=== PATIENT | female | born 1980 | race Caucasian/White ===

== ENCOUNTER 2017-05-10 08:03 | Emergency (ER) | payer OTHER ==
[2017-05-10] MEDS ORDERED: ONDANSETRON HCL INJ/PF 4 MG/2 ML SDV IV ONE (08:33)
[2017-05-10] MEDS ORDERED: MORPHINE SULFATE 10 MG/ML INJ IV PRN (08:33)
--- NOTE | 2017-05-10 08:34 | ER Document Report ---
ED General - General Chief Complaint: Possible Kidney Stone Stated Complaint: ABDOMINAL PAIN Time Seen by Provider: 05/10/17 08:18 Notes: 37 year female presents with 3 days of right lower back pain, worsening, radiating around to the front, worse with movement now associated with nausea. She has had increased urinary frequency and darker urine than usual. Denies fever chills. She has a history of a self diagnosed kidney stone and a bulging disc in her back and is not sure which one this feels like. Even toward by EMS which she states did not work. Past Medical History - Social History Smoking Status: Never Smoker Chew tobacco use (# tins/day): No Frequency of alcohol use: None Drug Abuse: None Family History: None GI Medical History: Reports: Hx Gastroesophageal Reflux Disease Review of Systems - Review of Systems Notes: REVIEW OF SYSTEMS GEN: Denies fever, chills, weight loss ENT: Denies sore throat, nasal discharge, ear pain EYES: Denies blurry vision, eye pain, discharge CV: Denies chest pain, palpitations, edema RESP: Denies cough, shortness of breath, wheezing GI: Denies abdominal pain, nausea, vomiting, diarrhea MSK: Back pain SKIN: Denies rash, skin lesions LYMPH: Denies swollen glands/lymph nodes NEURO: Denies headache, focal weakness or numbness, dizziness PSYCH: Denies depression, suicidal or homicidal ideation PHYSICAL EXAMINATION General: The obese. No acute distress, well-nourished Head: Atraumatic, normocephalic ENT: Mouth normal, oropharynx moist, no exudates or tonsillar enlargement Eyes: Conjunctiva normal, pupils equal, lids normal Neck: No JVD, supple, no guarding CVS: Normal rate, regular rhythm, no murmurs Resp: No resp distress, equal and normal breath sounds bilaterally GI: Nondistended, soft, no tenderness to palpation, no rebound or guarding Ext: No deformities, no edema, normal range of motion in upper and lower ext Back: Right lumbar versus CVA tenderness Skin: No rash, warm Lymphatic: No lymphadeopathy noted Neuro: Awake, alert. Face symmetric. GCS 15. Physical Exam - Vital signs Vitals: Temp Pulse Resp BP Pulse Ox 97.6 F 78 18 107/70 96 05/10/17 08:14 05/10/17 08:14 05/10/17 08:14 05/10/17 08:14 05/10/17 08:14 Course - Re-evaluation Re-evalutation: 05/10/17 08:34 Right-sided back pain radiating to the flank, suspicious for either pyonephritis kidney stone or muscular skeletal back pain. Morphine Zofran urinalysis. Possible CT. labs or hematuria. Noncon CT ordered. 05/10/17 09:39 Told patient she has hematuria but CT does not show stone. Pending radiology read. She is feeling better and appears more comfortable after dose of medication. She is concerned about her back and asked me to look at it. She thinks she has some bulging externally. She is quite obese and has a lot of fat but I did not feel any deformities. We discussed that she could still have a bulging disc with neurologic symptoms however imaging not indicated today. 05/10/17 09:51 Imaging shows right ovarian cyst. Is not likely the cause of the patient's pain. Her pain is mostly in the back and is worse with movement so I doubt this is a torsion. She will be told to follow-up with primary care. I have discussed with the patient there likely diagnosis, aftercare plan, follow -up plans and my usual and customary return precautions. They verbalized understanding of this. - Vital Signs Vital signs: Temp Pulse Resp BP Pulse Ox 97.6 F 78 18 107/70 96 05/10/17 08:14 05/10/17 08:14 05/10/17 08:14 05/10/17 08:14 05/10/17 08:14 - Laboratory Laboratory results interpreted by me: 05/10/17 08:42 Urine Blood LARGE H Discharge - Discharge Clinical Impression: Hematuria Qualifiers: Hematuria type: unspecified type Qualified Code(s): R31.9 - Hematuria, unspecified Condition: Good Disposition: HOME, SELF-CARE Additional Instructions: Your urine testing showed some blood. This may be from a recently passed kidney stone or an infection, because her CAT scan did not show a kidney stone. It also may be due to pain in her back from her prior injury. Either way on the safe side I am going to treat her for infection with antibiotics and given some pain medication. Please follow-up with your regular doctor within 5 days. I am also going to refer you to urology for further testing for the blood in your urine. You do have an ovarian cyst. This is not likely the cause of her pain but will require follow-up. Prescriptions: Hydrocodone/Acetaminophen [[place] 5-325 Tablet] 1 each PO Q4 PRN #12 tablet PRN Reason: Sulfamethoxazole/Trimethoprim [Bactrim 400-80 mg Tablet] 2 each PO BID #28 tablet Referrals: NABEEL ELLER MD [ACTIVE STAFF] - Follow up as needed
[2017-05-10 09:07] LABS: APPEARANCE,URINE SLIGHTLY-CLOUDY; BILIRUBIN,URINE NEGATIVE (NEGATIVE); GLUCOSE, URINE NEGATIVE (NEGATIVE); KETONES,URINE NEGATIVE (NEGATIVE); LEUKOCYTE ESTERASE,URINE NEGATIVE (NEGATIVE); NITRITE,URINE NEGATIVE (NEGATIVE); PROTEIN,URINE NEGATIVE (NEGATIVE); URINE SPECIFIC GRAVITY 1.016; UROBILINOGEN,URINE NEGATIVE mg/dL (<2.0)
--- NOTE | 2017-05-10 09:41 | RADIOLOGY REPORT (SQ) ---
EXAM DESCRIPTION: CT ABD/PELVIS NO ORAL OR IV COMPLETED DATE/TIME: 05/10/2017 9:24 am REASON FOR STUDY: stones COMPARISON: None. TECHNIQUE: CT scan of the abdomen and pelvis performed without intravenous or oral contrast. Images reviewed with lung, soft tissue, and bone windows. Reconstructed coronal and sagittal MPR images revi ewed. All images stored on PACS. All CT scanners at this facility use dose modulation, iterative reconstruction, and/or weight based d osing when appropriate to reduce radiation dose to as low as reasonably achievable (ALARA). [facility]: Dose Right [facility]: CareDose [facility]: Dose Right [facility]: Teradose 4D [facility]: [employer] RADIATION DOSE: Up-to-date CT equipment and radiation dose reduction techniques were employed. CTDIv ol: 19.2 mGy. DLP: 1181 mGy-cm.mGy. LIMITATIONS: None. FINDINGS: LOWER CHEST: Patchy infiltrate/atelectasis noted RML. NON-CONTRASTED LIVER, SPLEEN, ADRENALS: Evaluation limited by lack of IV contrast. No identified sign ificant masses. PANCREAS: No masses. No peripancreatic inflammatory changes. GALLBLADDER: Surgically absent. RIGHT KIDNEY AND URETER: No suspicious masses. Assessment limited by lack of IV contrast. No signif icant calcifications. No hydronephrosis or hydroureter. LEFT KIDNEY AND URETER: No suspicious masses. Assessment limited by lack of IV contrast. No signifi cant calcifications. No hydronephrosis or hydroureter. AORTA AND RETROPERITONEUM: No aneurysm. No retroperitoneal masses or adenopathy. BOWEL AND PERITONEAL CAVITY: No obvious masses or inflammatory changes. No free fluid. APPENDIX: Normal. PELVIS, BLADDER, AND ABDOMINAL WALL:4.6 cm right ovarian cyst. BONES: No significant findings. OTHER: No other significant finding. IMPRESSION: No stone or hydronephrosis of either kidney. 4.6 cm right ovarian cyst. Patchy infiltrate/atelectatic change RML. COMMENT: Quality ID # [id number]: Final reports with documentation of one or more dose reduction techniques (e.g., Automated exposure control, adjustment of the mA and/or kV according to patient size, use of iterative reconstruction technique) TECHNICAL DOCUMENTATION: JOB ID: [id number]- All Rights Reserved
[2017-05-10 11:45] LABS: ABSOLUTE BASOPHILS # (AUTO) 0.1 10^3/uL (0.0-0.2); ABSOLUTE EOSINOPHILS # (AUTO) 0.1 10^3/uL (0.0-0.6); ABSOLUTE LYMPHOCYTES (AUTO) 2.6 10^3/uL (0.5-4.7); ABSOLUTE MONOCYTES (AUTO) 0.6 10^3/uL (0.1-1.4); BASOPHILS % (AUTO) 0.9 % (0-2); EOSINOPHILS % (AUTO) 0.8 % (0-6); HEMATOCRIT 36.4 % (36.0-47.0); HEMOGLOBIN 12.1 g/dL (12.0-15.5); HGB HCT DIFFERENCE -0.1; LYMPHOCYTES % (AUTO) 28.1 % (13-45); MEAN CORPUSCULAR HEMOGLOBIN 26.7 pg (27.0-33.4); MEAN CORPUSCULAR HGB CONC 33.2 g/dL (32.0-36.0); MEAN CORPUSCULAR VOLUME 80 fl (80-97); MONOCYTES % (AUTO) 5.9 % (3-13); RED BLOOD COUNT 4.53 10^6/uL (3.72-5.28); RED CELL DISTRIBUTION WIDTH 15.8 % (11.5-14.0); SEGMENTED NEUTROPHILS % (AUTO) 64.3 % (42-78); WHITE BLOOD COUNT 9.4 10^3/uL (4.0-10.5)
[2017-05-10 12:01] LABS: ANION GAP 14 (5-19); BLOOD UREA NITROGEN 10 mg/dL (7-20); CALCIUM 8.6 mg/dL (8.4-10.2); CARBON DIOXIDE 25 mmol/L (22-30); CHLORIDE 105 mmol/L (98-107); GLUCOSE 88 mg/dL (75-110); POTASSIUM 3.8 mmol/L (3.6-5.0); SODIUM 143.7 mmol/L (137-145)
[2017-05-10 12:17] VITALS: BP 129/65
== END 2017-05-10 12:33 | disposition home or self-care (01) ==
LOC: ER 08:03
DX: R31.9 Hematuria, unspecified (principal); R10.9 Unspecified abdominal pain; M54.5 Low back pain
CPT/HCPCS: 99284; 96374; 96375; 36415; 85025; 81025; 80048; 81001; 74176; J2270; J2405

== ENCOUNTER 2018-12-02 05:58 | Emergency (ER) | payer OTHER ==
[2018-12-02 06:07] VITALS: BP 136/70
--- NOTE | 2018-12-02 07:56 | RADIOLOGY REPORT (SQ) ---
EXAM DESCRIPTION: XR LUMBAR SPINE ANTEROPOSTERIOR, LATERAL, AND OBLIQUES COMPLETED DATE/TME: 12/02/2018 00:00 CLINICAL HISTORY: 38 years, Female, fall COMPARISON: None. NUMBER OF VIEWS: Five TECHNIQUE: AP lateral and oblique images of the lumbar spine LIMITATIONS: None. FINDINGS: The alignment of the lumbar spine is satisfactory. There is a bony fragment from the anterior superior aspect of the L5 vertebral body with sclerotic margins along the bony fragment and along the vertebral body. The remainder of the vertebral bodies are normal. The neural foramen appear widely patent. 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 The remainder of the vertebral bodies appear normal. copyright 2010 [employer]- All Rights Reserved
--- NOTE | 2018-12-02 07:56 | RADIOLOGY REPORT (SQ) ---
EXAM DESCRIPTION: XR KNEE 4 OR MORE VIEWS COMPLETED DATE/TME: 12/02/2018 00:00 CLINICAL HISTORY: 38 years, Female, fall, pain COMPARISON: None. NUMBER OF VIEWS: Four TECHNIQUE: Four views of the right knee LIMITATIONS: None. FINDINGS: No acute fracture or dislocation. There is no significant joint effusion. No radiopaque foreign body. No large soft tissue swelling. IMPRESSION: No acute fracture or dislocation copyright 2010 [employer]- All Rights Reserved
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
== END 2018-12-02 09:15 | disposition home or self-care (01) ==
LOC: ER 05:58
DX: S80.01XA Contusion of right knee, initial encounter (principal); S33.5XXA Sprain of ligaments of lumbar spine, initial encounter; W10.9XXA Fall (on) (from) unspecified stairs and steps, initial encounter; Z90.49 Acquired absence of other specified parts of digestive tract
CPT/HCPCS: 72110; 99283